=== PATIENT | female | born 1990 | race Caucasian/White ===

== ENCOUNTER → 2024-07-17 | Outpatient (REF) | payer OTHER ==
[~2024-07-17] MED LIST: PANTOPRAZOLE SO40 MG PO; PROBIOTIC & AC1 EACH PO; SUCRALFATE1 GM PO; TUMERIC PO; VIT D PO; [UNRECOGNIZED DRUG - OTHER] PO
== END ==
LOC: US 09:19
PROVIDERS: ATTEND Nurse Practitioner
DX: R10.10 Upper abdominal pain, unspecified (principal); K29.70 Gastritis, unspecified, without bleeding; K59.09 Other constipation
CPT/HCPCS: 76700